=== PATIENT | female | born 1930 | race Asian ===

== ENCOUNTER 2018-11-18 22:04 | Emergency (ER) | payer MEDICARE, MEDICAID ==
[~2018-11-18] VITALS: Ht 160 cm; Wt 50.0 kg
[2018-11-18] MEDS ORDERED: TETANUS, DIPHTHERIA, PERTUSSIS VAC/PF 0.5ML (>7YR OLD) IM ONE (23:00)
[2018-11-19 02:39] VITALS: BP 108/56
== END 2018-11-19 02:43 | disposition home or self-care (01) ==
LOC: ER 22:04
DX: S00.83XA Contusion of other part of head, initial encounter (principal); W01.0XXA Fall on same level from slipping, tripping and stumbling without subsequent striking against object, initial encounter; Y93.89 Activity, other specified; Y92.480 Sidewalk as the place of occurrence of the external cause
CPT/HCPCS: 70486; 90471; 90715; 99284